=== PATIENT | male | born 1960 | race African-American/Black ===

== ENCOUNTER 2016-10-17 22:49 | Inpatient (IN) | payer MEDICAID ==
--- NOTE | ~2016-10-17 | DS ---
Discharge Summary [facility] [address] [place]. [address] NAME: THAI CASTILLO : 64 STATUS : DIS IN PAT#: [id number] AGE: 56 ADM/REG DATE : 10/18/16 MR#: [id number] REPORT SERV DATE: 10/25/16 DICTATED BY: KYLIE VELASCO DATE: 10/24/16 REPORT STATUS : Draft TRANSCRIBED BY: MODL DATE: 10/24/16 ADMISSION DATE: 10/18/2016 DISCHARGE DATE: 10/24/2016 PRIMARY CARE PHYSICIAN: Out of town physician in [place]. CONSULTING PHYSICIAN: Neurology, Dr. Diana. FINAL DIAGNOSES: 1. Acute right pulmonary embolism. 2. History of deep vein thrombosis. 3. Stage IV glioblastoma multiforme. 4. Seizure disorder. 5. Hypertension. 6. Noncompliance. HOSPITAL COURSE: Please refer to the H and P done by Dr. Sanchez, dated on 10/18/2016 and the interim discharge summary done by Dr. Lebron on 10/20/2016. Since I took care of this patient, Neurology has already signed off and saying that the patient is already DNR and DNI and refused to have further treatment for his glioblastoma multiforme. The patient's went to [facility] hoping that they can find some other miracle to help the patient. They already mentioned that they would not undergo anymore surgery, chemo, or radiation therapy. Meanwhile, the patient was diagnosed with acute right PE, and this is likely because the patient has been noncompliant with his medications. He already has been experiencing personality changes which the noted that has been going on ever since he has the brain cancer. She says that everyday is a struggle for him to take his medications. We discussed that his present Xarelto is actually better for him but the is afraid of it as there is no reversal agent for it, and she prefers Coumadin. The patient is now therapeutic at 2.0, and he wishes to be discharged from the hospital today, and he would not want to have anymore blood taken from him. The is appreciative of what we did for him and also realized that he is not long to live here, and she is actually asking for prayers to help him out. The patient will now be discharged with the above diagnoses. He will follow up with his PCP and neurosurgeon once he gets back to [place]. They prefer to go to [facility] afterwards, and she said that they are going to monitor his INR there. The patient will be on the following medications; Norvasc 10 mg a day, Decadron 2 mg a day, hydrochlorothiazide 25 mg a day, Vimpat 200 mg twice a day, Xalatan ophthalmic in both eyes, Metoprolol 25 mg a day, Coumadin 11 mg at night, and Cosopt ophthalmic twice a day to the right eye. TIME SPENT: 40 minutes. IMANI/MICA Discharge Summary [address] [address] NAME: THAI CASTILLO : 64 STATUS : DIS IN PAT#: [id number] AGE: 56 ADM/REG DATE : 10/18/16 MR#: [id number] REPORT SERV DATE: 10/25/16 DICTATED BY: KYLIE VELASCO DATE: 10/24/16 REPORT STATUS : Draft TRANSCRIBED BY: MICA DATE: 10/24/16 Kylie Velasco M.D. / [id number] CC: Klyie Velasco M.D.
--- NOTE | ~2016-10-17 | IDS ---
Interim Discharge Summary [facility] [address] [place]. [address] NAME: THAI CASTILLO : 64 STATUS : ADM IN PAT#: [id number] AGE: 56 ADM/REG DATE : 10/18/16 MR#: [id number] REPORT SERV DATE: 10/20/16 DICTATED BY: KYLIE LEBRON DATE: 10/20/16 REPORT STATUS : Draft TRANSCRIBED BY: MODL DATE: 10/20/16 ADMISSION DATE: 10/18/2016 DISCHARGE DATE: CONSULTANTS: Dr. Diana of Neurology. PROBLEM LIST: 1. Acute recurrent pulmonary embolism. 2. Transient fever and high white count, probably related to #1. 3. Stage IV glioblastoma with previous surgical resection, chemotherapy, and radiation in [place]. 4. History of hypertension. 5. History of glaucoma. 6. 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 7. Steroid-induced hyperglycemia. HISTORY: This patient reportedly was diagnosed with glioblastoma multiforme and was in a coma and was taken care of at [facility] at surgery in 05/2016 then chemotherapy and radiation. He finished those, but he has had several hospitalizations subsequently at another hospital in [place], this one is [facility]. It is not far away from the original Hospital. He has had recurrent deep vein thrombosis. Primarily, it seems to occur when he stops his medication. For a while, he was on Coumadin, then he was switched over to Xarelto, but each time he ends up stopping it. The patient and his came up to [place], [place], hoping that natural remedies might help with his cancer. They understand that it is a stage IV cancer. He was there and developed pain and shortness of breath in the right side of his chest along with cough. In our emergency room, he had a CTA of the chest, which revealed a large right-sided pulmonary embolism with secondary distal atelectasis and generation of effusion, some aneurysmal changes of the ascending aorta but no dissection. CT scan of the abdomen and pelvis showed a small umbilical fatty hernia; otherwise, it was noted for fatty liver and no other particular abnormalities. He was admitted to the hospital. Our admitting partner had him on Lovenox and continued Xarelto, but I stopped those and had him go for a stat CT scan of the brain without contrast on 10/18/2016, which revealed just a subtle defect in the left frontoparietal region. No evidence of bleed. MRI of the brain, 10/18/2016, shows left temporal mass 2.5 x 3.5 cm in one area and up to 4.1 x 1.0 cm in another with a satellite metastasis measuring 0.6 x 0.6 cm consistent with recurrent tumor. There was very little mass effect and no bleed. Records that have come from [facility] (but not from [facility] where the original surgery was done) describe that his tumor size in 05/2016 was approximately 1.4 x 1.7 cm at its largest. I have described this to the patient and his multiple times. I have told them that it appears that it is much larger. They at this point in time indicate that he does not wish to pursue any further surgical therapy or chemotherapy or radiation. I told him I was not sure that any more would even be an option for him , but that if it was, he needed to get back to [facility] where his neurosurgeon who knew all the details Interim Discharge Summary [address] [place] [facility] [place] [address] NAME: THAI CASTILLO : 64 STATUS : ADM IN PAT#: [id number] AGE: 56 ADM/REG DATE : 10/18/16 MR#: [id number] REPORT SERV DATE: 10/20/16 DICTATED BY: KYLIE LEBRON DATE: 10/20/16 REPORT STATUS : Draft TRANSCRIBED BY: MODSean DATE: 10/20/16 of his case could help make that decision. The patient and again are quite clear that he does not wish to have any further surgical intervention and he wants to take just medicines by mouth and natural remedies and "leave the rest of it in God's hands." I talked with them both about his code status. They made it quite clear he wants to be DNR and do not intubate. They are hoping that miraculously God will intervene. They were somewhat inconsistent in telling us how much dexamethasone he is really supposed to be taking at this point in time, it seems like 2 mg a day and it seems to be working well for him. Most of the time, he is alert and interactive, sometimes if he has had a headache, he will be less interactive and especially in the morning sometimes he will be less alert. The patient's states that it has been that way for some time and some weakness in his right leg that is worse intermittently as well. Initially because he had elevated white count and some fever, we did have him on antibiotics, but cultures are negative, procalcitonin is negative, and so we are stopping antibiotics at this point in time. I am asking PT and OT to see him and assess him, but he seems to be walking fairly well at this point in time. He had a long discussion about the risks and benefits with me and his and also with neurologist, Dr. Diana. I had recommended, he seriously consider just an IVC filter, but after he met with the neurologist, he really wants to go on an anticoagulant. He wants to take Coumadin because there is a reversal agent and so he is on heparin drip (instead of Lovenox because we can get rid of heparin intravenously quicker than Lovenox) and he will therefore stay here until his INR is therapeutic for two days in a row and then stop heparin. Thereafter, I recommend as soon as possible that he gets back close to family and home because barring a miracle it would not be long before there was a major deterioration and . RSG/MODL Kylie Lebron M.D. / [id number] CC: Kylie Lebron M.D. UNKNOWN
--- NOTE | ~2016-10-17 | HP ---
History And Physical [facility] [address] [place]. [address] NAME: THAI CASTILLO : 64 STATUS : ADM IN PAT#: [id number] AGE: 56 ADM/REG DATE : 10/18/16 MR#: [id number] REPORT SERV DATE: 10/18/16 DICTATED BY: CHIP RODRIGUES DATE: 10/18/16 REPORT STATUS : Draft TRANSCRIBED BY: MODL DATE: 10/18/16 DATE OF ADMISSION: 10/18/2016 CHIEF COMPLAINT: Right-sided chest pain and flank pain, cough, and chills. HISTORY OF PRESENT ILLNESS: This is a 56-year-old male, who has a history of glioblastoma and has undergone craniotomy and resection followed by chemotherapy and radiation therapy in [place], who presents to the emergency room at [facility], [place] with the above-mentioned complaint. History is obtained mostly from his and reviewing data available on the [employer] system here. According to the patient's , they are originally from [place], where he was diagnosed to have glioblastoma and had treatment as stated above. We do not have any records or details from the place. Since the completion of his chemotherapy and radiation therapy, they decided to follow some natural therapies offered by [facility] in [place] and have recently come to this facility. They arrived on 10/12/2016 and since his arrival here, he started having a cough productive of unknown color of sputum, but he has complained of severe right- sided chest pain and flank pain. He also had some shaking chills yesterday and they decided to come to [facility] to be evaluated. In the emergency room, initial workup including a CT of his abdomen and pelvis showed small peripheral infiltrate on the right side. There is also a small right-sided pleural effusion seen in the lung windows. Otherwise, the CT was unremarkable. He also met criteria for sepsis, had leukocytosis, and Hospitalist Service is asked to admit him for further evaluation and treatment. At the time of my evaluation, he denied any chest pain or palpitations. He had no orthopnea. He had a cough, which was essentially nonproductive at the time I was there. He had no hemoptysis, night sweats, or weight loss according to his . He did not have any recent falls or loss of consciousness. No history of nausea, vomiting, or diarrhea. He did have chills as mentioned above. No other history of hematemesis, hematochezia, or hematuria. No other history of recent travel or exposures other than those mentioned above. Of note, the patient and his had traveled by road from [place] to [facility] on 10/12/2016 and it was an 11-hour drive. She also mentions that he had a history of DVT recently found in [place] and he was initially started on warfarin, but then switched to Xarelto. Unfortunately, the patient's says due to his surgery and behavioral changes since then, he sometimes will not take any medicines by mouth. Recently, he has not taken his Xarelto as well. PAST MEDICAL HISTORY: Significant for history of glioblastoma, status post craniotomy and excision, status post chemotherapy and radiation therapy. He has history of hypertension and recent DVT, supposed to be on Xarelto. SOCIAL HISTORY: He does not smoke, drink, or use recreational drugs. He is a diesel mechanic farm by profession. History And Physical [address] [address] NAME: THAI CASTILLO : 64 STATUS : ADM IN [facility]#: [id number] AGE: 56 ADM/REG DATE : 10/18/16 MR#: [id number] REPORT SERV DATE: 10/18/16 DICTATED BY: CHIP RODRIGUES DATE: 10/18/16 REPORT STATUS : Draft TRANSCRIBED BY: MICA DATE: 10/18/16 FAMILY HISTORY: Noncontributory. MEDICATIONS: His medications at home were reviewed by me in the chart today and reordered by me. REVIEW OF SYSTEMS: As in history of present illness. All other systems were reviewed in detail and are quite unremarkable. PHYSICAL EXAMINATION: GENERAL: This is a pleasant 56-year-old, not in any acute distress. HEENT: His head is atraumatic, normocephalic. He is alert, awake, oriented to time, place, and person. His pupils are equal, reacting to light and accommodating. External ocular muscles are intact. Membranes are moist and pink. Sclerae are nonicteric. NECK: Supple with no jugular venous distention, lymphadenopathy, or thyromegaly. LUNGS: Clear to auscultation with no wheezes, rubs, or crackles. HEART: Heart sounds were regular with no murmurs, rubs, or gallops. ABDOMEN: Soft, nontender. Bowel sounds are present. EXTREMITIES: Showed no cyanosis, clubbing, or edema. NEUROLOGIC: Grossly intact. No focal sensory or motor deficits. Higher functions appeared intact. Gait was not examined. VITAL SIGNS: His vital signs today showed a temperature of 101.7 degrees Fahrenheit, pulse was 115, respirations 18 a minute, blood pressure was 127/89, oxygen saturations were 93% breathing 2 L of oxygen via nasal cannula. LABORATORY DATA: Reviewed on the [employer] system showed a sodium of 140, potassium 3.8, chloride 104 and CO2 of 20. BUN was 6 with a creatinine of 1.07 and blood glucose was 116. His albumin was 2.7, globulin 4.8. Alkaline phosphatase, ALT, and AST were within normal limits. Lipase was 129. Lactate was 1.0 today. His procalcitonin was less than 0 less than 0.05. CBC showed a white blood cell count of 16,700. Hemoglobin was 15.4, hematocrit 42.5, and platelet count was 282,000. Urinalysis was grossly unremarkable. Films of the CT scan of his abdomen and pelvis were reviewed by me on the PACS today and interpreted by me. Per my interpretation, there is a small peripherally located infiltrate versus infarction on the right side. This is concerning for pulmonary embolism as well. There is also a small right-sided pleural effusion seen. IMPRESSION: 1. Intractable cough. 2. Right upper lobe pneumonia. 3. Sepsis by criteria. 4. Leukocytosis. 5. Glioblastoma, status post resection, chemotherapy, and radiation therapy done in [place]. 6. Hypertension. 7. History of recent deep vein thrombosis, on Xarelto, noncompliant. History And Physical [address] [address] NAME: THAI CASTILLO : 64 STATUS : ADM IN [facility]#: [id number] AGE: 56 ADM/REG DATE : 10/18/16 MR#: [id number] REPORT SERV DATE: 10/18/16 DICTATED BY: CHIP RODRIGUES DATE: 10/18/16 REPORT STATUS : Draft TRANSCRIBED BY: MODL DATE: 10/18/16 PLAN: We will admit the patient to telemetry for close monitoring. After cultures are drawn, we will start him on empiric IV antibiotics. Follow Gram stains and cultures. We will go ahead and get a CTA of his chest to further evaluate abnormalities seen on the CT of the abdomen and pelvis. Although clinically I think he could have pneumonia, his noncompliance while on Xarelto would justify getting a CTA of the chest. We will start him on IV fluids for volume resuscitation. Check chemistry, CBC, and other electrolytes in the morning and replace as needed. We will also start him on pain control cautiously as needed and place him on unfractionated heparin for DVT prophylaxis at this time until we get more details on the CTA of the chest. I have discussed the above plans with the patient and his . Questions were answered and they are agreeable to the above recommendations. Hospitalist Service will be following him during his stay here. FRANCIS Chip Rodrigues M.D. / [id number] CC: Chris Lebron M.D.
--- NOTE | ~2016-10-17 | CN ---
Consultation Report [facility] [address] [place]. [address] NAME: THAI CASTILLO : 64 STATUS : ADM IN PAT#: [id number] AGE: 56 ADM/REG DATE : 10/18/16 MR#: [id number] REPORT SERV DATE: 10/19/16 DICTATED BY: DATE: REPORT STATUS : Draft TRANSCRIBED BY: MODL DATE: 10/19/16 NEUROLOGY CONSULTATION DATE OF CONSULTATION: 10/18/2016 REASON FOR CONSULT: Pulmonary embolus, evaluate for bleeding risk for hemorrhage in a GBM patient. HISTORY OF PRESENT ILLNESS: This is a 56-year-old male who presented to [facility] on 10/18/2016, secondary to chest pain, flank pain as well as cough and chills as well as fever. The patient was subsequently found to have a moderate sized pulmonary embolus. The patient does have a history of pulmonary embolism, roughly 2 months ago for which the patient was prescribed initially Coumadin and subsequently Xarelto. The patient stopped taking Xarelto not secondary to side effects but because of noncompliance. The patient subsequently was noted to have PE during the hospitalization and was placed on IV heparin. The patient does have a history of GBM diagnosed in May 2016, status post debulking surgery as well as chemotherapy and radiation therapy with the patient is done with radiation therapy. Per the patient's , no new speech difficulties, language difficulties, or focal weakness or numbness was reported by the patient. The patient does not appear to have any new focal deficits. No other recent illness was otherwise noted. The patient's neurosurgery as well as oncologist was in [place]. The patient is here for possible alternative therapy. PAST MEDICAL HISTORY: Significant for history of glioblastoma multiforme, status post craniectomy excision as well as chemotherapy and radiation therapy. The patient does have history of DVT, previously on Coumadin and then changed to Xarelto with the patient being noncompliant with the Xarelto. The patient does also have history of hypertension. SOCIAL HISTORY: Denies tobacco, alcohol, or recreational drug usage. FAMILY HISTORY: No significant family history of brain tumor was otherwise noted. REVIEW OF SYSTEMS: Review of system according to the is negative. HOME MEDICATIONS: Consist of amlodipine; Combigan ophthalmic drop, Keflex, hydrochlorothiazide, Vimpat, Lopressor, Xarelto which the patient is not taking as well as Travatan eyedrops. PHYSICAL EXAMINATION: VITAL SIGNS: Overnight, the patient was noted to have vital signs with T-max of 100.0, heart rate of 81 to 105, respirations of 16 to 22, and blood pressure of 94 to 122 over 53 to 84. GENERAL: The patient is well developed, well nourished, in no acute distress. Consultation Report [facility] [id number] [place]. [address] NAME: THAI CASTILLO : 64 STATUS : ADM IN PAT#: [id number] AGE: 56 ADM/REG DATE : 10/18/16 MR#: [id number] REPORT SERV DATE: 10/19/16 DICTATED BY: DATE: REPORT STATUS : Draft TRANSCRIBED BY: MODL DATE: 10/19/16 CARDIOVASCULAR: Regular rate and rhythm. No carotid bruits were otherwise auscultated. PULMONARY: Examination was clear to auscultation bilaterally. NEUROLOGICAL: Generally the patient is alert. The patient, secondary to language barrier, orientation question was not asked. The patient was noted to have no clear dysarthria. No significant aphasia. The patient is able to follow simple and 2-step commands without significant difficulties. Cranial nerves 2 through 12, pupils equal, round, and reactive to light. Extraocular eye movement was noted to be intact. No clear jezdt-my-sfswis response was seen. The patient demonstrated decreased sensation in the left face cranial nerve V1 and 2 distribution. Reports symmetrical sensation. Cranial nerve V3 distribution bilaterally. Midline tongue. Normal palatal movement. Mild decreased hearing in bilateral ears. Symmetrical facial expression. The patient does demonstrate 5/5 bilateral upper and lower extremity strength with reports of symmetrical sensation. The patient was noted to have normal deep tendon reflex, downgoing toe on the left plantar reflex; upgoing toe on the right plantar reflex. No clear ataxia was seen on [id number] examination bilaterally. LABORATORY STUDIES: Demonstrated white blood cell count of 12.1, hemoglobin of 14.6, hematocrit of 41.6, and platelet count of 293. Chemistry panel: Sodium of 138, potassium 3.7, chloride 102, bicarb of 28, BUN of 6, creatinine of 0.87, glucose of 158, and calcium of 9.4. A.m. cortisol was 18.1. CT scan of the brain was reviewed, hypoattenuation in the left temporal area was seen. MRI of the brain with and without contrast was seen. The patient was noted to have contrast enhancing tumor in the left temporal area. No significant mass effect was otherwise noted. No clear hemorrhage was seen. IMPRESSION: 1. Pulmonary embolism. 2. Glioblastoma multiforme. No new deficit was reported by family. The patient does have left facial numbness on examination, otherwise, no new weakness was noted on examination. The patient has had history of Xarelto usage in the past but was not compliant, was noted to have new moderate size pulmonary embolism on today's hospital admission. Discussed with the patient's regarding risk of bleeding with anticoagulation given history of intracranial tumor, the patient's would rather the patient stay on Coumadin secondary to reversibility if bleeding occurs. We will place the patient on Coumadin with a goal INR between 2 and 3. RECOMMENDATIONS: Coumadin p.o. Pharmacy to dose. Goal INR between 2 and 3. We will sign off. Call with questions. JANINA/MICA Jose Diana MD / [id number] Consultation Report [address] [address] NAME: THAI CASTILLO : 64 STATUS : ADM IN [facility]#: [id number] AGE: 56 ADM/REG DATE : 10/18/16 MR#: [id number] REPORT SERV DATE: 10/19/16 DICTATED BY: DATE: REPORT STATUS : Draft TRANSCRIBED BY: LEIDYL DATE: 10/19/16 CC: Chris Lebron M.D.
[2016-10-17 23:58] LABS: PROCALCITONIN <0.05 ng/mL (<0.5)
[2016-10-18 00:23] LABS: A/G RATIO 0.6 (0.7-1.9); ALBUMIN 2.7 G/DL (3.5-5.0); ALKALINE PHOSPHATASE 77 U/L (45-117); BUN (BLOOD UREA NITROGEN) 6 MG/DL (6-23); CALCIUM, SERUM 8.8 MG/DL (8.5-10.4); CHLORIDE, SERUM 104 MMOL/L (96-112); CO2 (CARBON DIOXIDE) 20 MMOL/L (24-34); CREATININE 1.07 MG/DL (0.70-1.30); GFR AFRICAN AMERICAN 91 ML/MIN (>=60); GFR NON AFRICAN AMERICAN 78 ML/MIN (>=60); GLOBULIN 4.8 G/DL (2.5-4.1); GLUCOSE, SERUM 116 MG/DL (60-99); POTASSIUM, SERUM 3.8 MMOL/L (3.5-5.3); SGOT(AST) 21 U/L (5-40); SGPT(ALT) 40 U/L (5-65); SODIUM, SERUM 140 MMOL/L (135-148); TOTAL BILIRUBIN 0.6 MG/DL (0-1.2); TOTAL PROTEIN 7.5 G/DL (6.0-8.5); TROPONIN I <0.02 NG/ML (<0.05)
[2016-10-18 00:33] LABS: BASOPHILS 0.1 %; BASOPHILS ABSOLUTE 0.02 10/3/uL (0.0-0.16); EOSINOPHILS 0.2 %; EOSINOPHILS ABSOLUTE 0.04 10/3/uL (0.0-0.53); ER CBC TAT 0 Hrs 03 Mins; HEMATOCRIT 42.5 % (40.0-51.0); HEMOGLOBIN 15.4 g/dL (13.6-17.8); IMMATURE GRANULOCYTES 0.7 %; IMMATURE GRANULOCYTES ABSOLUTE 0.11 10/3/uL (0.0-0.11); LYMPHOCYTES 15.6 %; LYMPHOCYTES ABSOLUTE 2.61 10/3/uL (0.67-4.30); MEAN CORPUS HGB CONC 36.2 g/dL (32.0-36.0); MEAN CORPUSCULAR HEMOGLOB 33.3 pg (26.0-34.0); MEAN PLATELET VOLUME 9.7 fL (9.2-13.0); MONOCYTES 4.7 %; MONOCYTES ABSOLUTE 0.79 10/3/uL (0.21-1.20); NEUTROPHILS 78.7 %; NEUTROPHILS ABSOLUTE 13.12 10/3/uL (2.02-8.40); PLATELET COUNT 282 10/3/uL (150-400); RBC DISTRIBUTION WIDTH 15.2 % (12.0-16.0); RED CELL COUNT 4.62 10/6/uL (4.7-6.1); WHITE BLOOD CELLS 16.7 10/3/uL (4.5-10.5)
[2016-10-18 00:34] LABS: MANUAL DIFF NO %
[2016-10-18] MEDS ORDERED: VIMPAT200 MG PO (00:53)
[2016-10-18 01:04] LABS: ASCORBIC ACID (UR NOT ORDER) 40 (NEG); BILIRUBIN, URINE NEGATIVE (NEG); ER URINALYSIS TAT 0 Hrs 00 Mins; KETONE, URINE TRACE MG/DL (NEG); LEUKOCYTE ESTERASE(NOT OR NEG (NEG); NITRITE (URINE) NEG (NEG); WBC (NOT ORDERED) (RFLEX) 1 (0-5)
[2016-10-18] MEDS ORDERED: K500 PO (01:23)
[2016-10-18] MEDS ORDERED: NORV10 PO (01:23)
[2016-10-18] MEDS ORDERED: HYDROCHLOROT25 MG PO (01:24)
[2016-10-18] MEDS ORDERED: COMBIGAN0.2 MG/0.5 OPH (01:24)
[2016-10-18] MEDS ORDERED: XARELTO20 MG PO (01:24)
[2016-10-18] MEDS ORDERED: LOP25 PO (01:25)
[2016-10-18] MEDS ORDERED: TRAVATAN Z 0.004% OPH (01:26)
[2016-10-18 06:55] LABS: BASOPHILS 0.1 %; BASOPHILS ABSOLUTE 0.01 10/3/uL (0.0-0.16); EOSINOPHILS 0.2 %; EOSINOPHILS ABSOLUTE 0.03 10/3/uL (0.0-0.53); HEMATOCRIT 39.2 % (40.0-51.0); HEMOGLOBIN 13.8 g/dL (13.6-17.8); IMMATURE GRANULOCYTES 0.8 %; IMMATURE GRANULOCYTES ABSOLUTE 0.11 10/3/uL (0.0-0.11); LYMPHOCYTES 20.7 %; LYMPHOCYTES ABSOLUTE 2.85 10/3/uL (0.67-4.30); MEAN CORPUS HGB CONC 35.2 g/dL (32.0-36.0); MEAN CORPUSCULAR HEMOGLOB 32.9 pg (26.0-34.0); MEAN CORPUSCULAR VOLUME 93.6 fL (80-100); MEAN PLATELET VOLUME 9.2 fL (9.2-13.0); MONOCYTES 5.2 %; MONOCYTES ABSOLUTE 0.72 10/3/uL (0.21-1.20); NEUTROPHILS ABSOLUTE 10.03 10/3/uL (2.02-8.40); PLATELET COUNT 259 10/3/uL (150-400); RBC DISTRIBUTION WIDTH 14.8 % (12.0-16.0); RED CELL COUNT 4.19 10/6/uL (4.7-6.1); WHITE BLOOD CELLS 13.8 10/3/uL (4.5-10.5)
[2016-10-18 06:57] LABS: BUN (BLOOD UREA NITROGEN) 5 MG/DL (6-23); CHLORIDE, SERUM 104 MMOL/L (96-112); GFR AFRICAN AMERICAN 98 ML/MIN (>=60); GFR NON AFRICAN AMERICAN 85 ML/MIN (>=60); GLUCOSE, SERUM 122 MG/DL (60-99); PHOSPHORUS, SERUM 3.3 MG/DL (2.5-4.5); POTASSIUM, SERUM 3.7 MMOL/L (3.5-5.3); SODIUM, SERUM 140 MMOL/L (135-148)
[2016-10-18 06:58] LABS: CO2 (CARBON DIOXIDE) 28 MMOL/L (24-34)
[2016-10-18 07:05] LABS: MANUAL DIFF NO %
[2016-10-18] MEDS ORDERED: DEX2 PO (17:08)
[2016-10-18] MEDS ORDERED: COSOPT OPH (17:09)
[2016-10-18] MEDS ORDERED: XALAT OPH (17:09)
[2016-10-18 19:23] LABS: INTERNATIONAL NORMAL RATI 1.2 UNITS (-); PARTIAL THROMBO TIME 31.9 SEC (22.5-37.2); PROTIME (NOT ORD) 15.1 SEC (12.0-14.5)
[2016-10-19 05:40] LABS: BASOPHILS 0.1 %; BASOPHILS ABSOLUTE 0.01 10/3/uL (0.0-0.16); EOSINOPHILS 0.1 %; EOSINOPHILS ABSOLUTE 0.01 10/3/uL (0.0-0.53); HEMATOCRIT 41.6 % (40.0-51.0); HEMOGLOBIN 14.6 g/dL (13.6-17.8); IMMATURE GRANULOCYTES 0.5 %; IMMATURE GRANULOCYTES ABSOLUTE 0.06 10/3/uL (0.0-0.11); LYMPHOCYTES 13.4 %; LYMPHOCYTES ABSOLUTE 1.62 10/3/uL (0.67-4.30); MEAN CORPUS HGB CONC 35.1 g/dL (32.0-36.0); MEAN CORPUSCULAR HEMOGLOB 32.2 pg (26.0-34.0); MEAN CORPUSCULAR VOLUME 91.8 fL (80-100); MEAN PLATELET VOLUME 9.4 fL (9.2-13.0); MONOCYTES 3.3 %; NEUTROPHILS 82.6 %; NEUTROPHILS ABSOLUTE 9.95 10/3/uL (2.02-8.40); PLATELET COUNT 293 10/3/uL (150-400); RED CELL COUNT 4.53 10/6/uL (4.7-6.1); WHITE BLOOD CELLS 12.1 10/3/uL (4.5-10.5)
[2016-10-19 05:55] LABS: MANUAL DIFF NO %
[2016-10-19 06:36] LABS: BAND NEUTROPHILS 3 %; EOSINOPHILS 2 %; EOSINOPHILS ABSOLUTE (CALC) 0.24 10/3/uL (0.0-0.53); IMMATURE GRANS ABSOLUTE (CALC) 0.12 10/3/uL (0.0-0.11); LYMPHOCYTES 15 %; LYMPHOCYTES ABSOLUTE (CALC) 1.82 10/3/uL (0.67-4.30); METAMYELOCYTES 1 %; MONOCYTES 5 %; MONOCYTES ABSOLUTE (CALC) 0.61 10/3/uL (0.21-1.20); NEUTROPHILS ABSOLUTE (CALC) 9.32 10/3/uL (2.02-8.40); PLATELET ESTIMATE ADQ (ADEQUATE); SEGMENTED NEUTROPHIL (0) 74 %; TOTAL NUCLEATED CELLS 100
[2016-10-19 06:37] LABS: POLYCHROMASIA 1+ (2-5/OIF) (0-1/OIF)
[2016-10-19 08:05] LABS: BUN (BLOOD UREA NITROGEN) 6 MG/DL (6-23); CHLORIDE, SERUM 102 MMOL/L (96-112); CO2 (CARBON DIOXIDE) 28 MMOL/L (24-34); CREATININE 0.87 MG/DL (0.70-1.30); GFR AFRICAN AMERICAN 113 ML/MIN (>=60); GFR NON AFRICAN AMERICAN 98 ML/MIN (>=60); SODIUM, SERUM 138 MMOL/L (135-148)
[2016-10-19 08:07] LABS: CALCIUM, SERUM 9.4 MG/DL (8.5-10.4); GLUCOSE, SERUM 158 MG/DL (60-99); POTASSIUM, SERUM 3.7 MMOL/L (3.5-5.3)
[2016-10-20 12:19] LABS: BASOPHILS 0.1 %; BASOPHILS ABSOLUTE 0.01 10/3/uL (0.0-0.16); EOSINOPHILS 0.1 %; EOSINOPHILS ABSOLUTE 0.01 10/3/uL (0.0-0.53); HEMATOCRIT 39.7 % (40.0-51.0); HEMOGLOBIN 14.1 g/dL (13.6-17.8); IMMATURE GRANULOCYTES 0.4 %; IMMATURE GRANULOCYTES ABSOLUTE 0.05 10/3/uL (0.0-0.11); LYMPHOCYTES 11.5 %; LYMPHOCYTES ABSOLUTE 1.41 10/3/uL (0.67-4.30); MEAN CORPUS HGB CONC 35.5 g/dL (32.0-36.0); MEAN CORPUSCULAR HEMOGLOB 32.8 pg (26.0-34.0); MEAN CORPUSCULAR VOLUME 92.3 fL (80-100); MEAN PLATELET VOLUME 9.3 fL (9.2-13.0); MONOCYTES 4.7 %; MONOCYTES ABSOLUTE 0.57 10/3/uL (0.21-1.20); NEUTROPHILS 83.2 %; NEUTROPHILS ABSOLUTE 10.16 10/3/uL (2.02-8.40); PLATELET COUNT 295 10/3/uL (150-400); RBC DISTRIBUTION WIDTH 14.9 % (12.0-16.0); WHITE BLOOD CELLS 12.2 10/3/uL (4.5-10.5)
[2016-10-20 12:23] LABS: MANUAL DIFF NO %
[2016-10-20 12:27] LABS: INTERNATIONAL NORMAL RATI 1.2 UNITS (-); PROTIME (NOT ORD) 15.4 SEC (12.0-14.5)
[2016-10-20 12:28] LABS: PARTIAL THROMBO TIME 89.8 SEC (22.5-37.2)
[2016-10-20 12:45] LABS: BUN (BLOOD UREA NITROGEN) 11 MG/DL (6-23); CALCIUM, SERUM 9.2 MG/DL (8.5-10.4); CHLORIDE, SERUM 101 MMOL/L (96-112); CO2 (CARBON DIOXIDE) 29 MMOL/L (24-34); CREATININE 0.97 MG/DL (0.70-1.30); GFR AFRICAN AMERICAN 102 ML/MIN (>=60); GFR NON AFRICAN AMERICAN 88 ML/MIN (>=60); GLUCOSE, SERUM 144 MG/DL (60-99); POTASSIUM, SERUM 3.6 MMOL/L (3.5-5.3); SODIUM, SERUM 139 MMOL/L (135-148)
[2016-10-21 06:20] LABS: BASOPHILS 0.1 %; BASOPHILS ABSOLUTE 0.01 10/3/uL (0.0-0.16); EOSINOPHILS 0.1 %; EOSINOPHILS ABSOLUTE 0.01 10/3/uL (0.0-0.53); HEMATOCRIT 38.9 % (40.0-51.0); HEMOGLOBIN 13.9 g/dL (13.6-17.8); IMMATURE GRANULOCYTES 0.5 %; IMMATURE GRANULOCYTES ABSOLUTE 0.07 10/3/uL (0.0-0.11); LYMPHOCYTES 15.5 %; LYMPHOCYTES ABSOLUTE 1.98 10/3/uL (0.67-4.30); MEAN CORPUS HGB CONC 35.7 g/dL (32.0-36.0); MEAN CORPUSCULAR HEMOGLOB 32.9 pg (26.0-34.0); MEAN PLATELET VOLUME 9.4 fL (9.2-13.0); MONOCYTES 5.9 %; MONOCYTES ABSOLUTE 0.76 10/3/uL (0.21-1.20); NEUTROPHILS 77.9 %; NEUTROPHILS ABSOLUTE 9.95 10/3/uL (2.02-8.40); PLATELET COUNT 315 10/3/uL (150-400); RBC DISTRIBUTION WIDTH 14.5 % (12.0-16.0); RED CELL COUNT 4.23 10/6/uL (4.7-6.1); WHITE BLOOD CELLS 12.8 10/3/uL (4.5-10.5)
[2016-10-21 06:22] LABS: MANUAL DIFF NO %
[2016-10-21 06:23] LABS: INTERNATIONAL NORMAL RATI 1.3 UNITS (-); PROTIME (NOT ORD) 16.2 SEC (12.0-14.5)
[2016-10-22 07:12] LABS: INTERNATIONAL NORMAL RATI 1.7 UNITS (-)
[2016-10-22 07:19] LABS: PROTIME (NOT ORD) 19.5 SEC (12.0-14.5)
[2016-10-22 07:25] LABS: PARTIAL THROMBO TIME > 150.0 SEC (22.5-37.2)
[2016-10-23 05:24] LABS: INTERNATIONAL NORMAL RATI 1.8 UNITS (-); PROTIME (NOT ORD) 20.3 SEC (12.0-14.5)
[2016-10-24 09:22] LABS: BASOPHILS 0.3 %; BASOPHILS ABSOLUTE 0.03 10/3/uL (0.0-0.16); EOSINOPHILS ABSOLUTE 0.12 10/3/uL (0.0-0.53); HEMATOCRIT 44.9 % (40.0-51.0); IMMATURE GRANULOCYTES 0.9 %; IMMATURE GRANULOCYTES ABSOLUTE 0.11 10/3/uL (0.0-0.11); LYMPHOCYTES 26.6 %; LYMPHOCYTES ABSOLUTE 3.17 10/3/uL (0.67-4.30); MANUAL DIFF NO %; MEAN CORPUS HGB CONC 35.6 g/dL (32.0-36.0); MEAN CORPUSCULAR HEMOGLOB 33.3 pg (26.0-34.0); MEAN CORPUSCULAR VOLUME 93.5 fL (80-100); MEAN PLATELET VOLUME 9.3 fL (9.2-13.0); MONOCYTES 5.7 %; MONOCYTES ABSOLUTE 0.68 10/3/uL (0.21-1.20); NEUTROPHILS 65.5 %; NEUTROPHILS ABSOLUTE 7.79 10/3/uL (2.02-8.40); NUCLEATED RED BLOOD CELLS 0.3 /100WBC (0-0); PLATELET COUNT 359 10/3/uL (150-400); RBC DISTRIBUTION WIDTH 14.6 % (12.0-16.0); WHITE BLOOD CELLS 11.9 10/3/uL (4.5-10.5)
[2016-10-24 09:28] LABS: PROTIME (NOT ORD) 22.2 SEC (12.0-14.5)
[2016-10-24 09:38] LABS: BUN (BLOOD UREA NITROGEN) 13 MG/DL (6-23); CALCIUM, SERUM 9.7 MG/DL (8.5-10.4); CHLORIDE, SERUM 102 MMOL/L (96-112); CO2 (CARBON DIOXIDE) 27 MMOL/L (24-34); CREATININE 1.07 MG/DL (0.70-1.30); GFR AFRICAN AMERICAN 91 ML/MIN (>=60); GFR NON AFRICAN AMERICAN 78 ML/MIN (>=60); POTASSIUM, SERUM 3.6 MMOL/L (3.5-5.3); SODIUM, SERUM 135 MMOL/L (135-148)
[2016-10-24 09:39] LABS: GLUCOSE, SERUM 111 MG/DL (60-99)
[2016-10-24] MEDS ORDERED: TESS PO (10:41)
[2016-10-24] MEDS ORDERED: COUMADIN10 MG PO (10:43)
== END 2016-10-24 11:21 | disposition home or self-care (01) | DRG 176 ==
LOC: ER 22:49 → 2SO 10-18 01:32
PROVIDERS: Emergency Medicine; Hospitalist; Internal Medicine; Nurse Practitioner
DX: I26.99 Other pulmonary embolism without acute cor pulmonale (principal); C71.9 Malignant neoplasm of brain, unspecified; I71.4 Abdominal aortic aneurysm, without rupture; I10 Essential (primary) hypertension; H54.41 Blindness, right eye, normal vision left eye; Z66 Do not resuscitate; G40.909 Epilepsy, unspecified, not intractable, without status epilepticus; Z86.711 Personal history of pulmonary embolism; Z86.718 Personal history of other venous thrombosis and embolism; Z98.890 Other specified postprocedural states; Z92.21 Personal history of antineoplastic chemotherapy; Z92.3 Personal history of irradiation; Z91.19 Patient's noncompliance with other medical treatment and regimen; R73.9 Hyperglycemia, unspecified; R50.9 Fever, unspecified; D72.829 Elevated white blood cell count, unspecified; T38.0X5A Adverse effect of glucocorticoids and synthetic analogues, initial encounter
CPT/HCPCS: 70450; 70553; 71020; 71275; 74176; 80048; 80053; 81001; 82533; 83605; 83690; 83735; 84100; 84145; 84484; 85025; 85610; 85730; 87040; 93005; 94640; 96374; 96375; 97116-GP; 97161-GP; 97165-GO; 99285; A9270-GY; A9577; G8978-CJ-GP; G8979-CJ-GP; G8980-CI-GP; J0456; J1170; J1956; Q9967